=== PATIENT | female | born 1980 | race Hispanic/Latino ===

== ENCOUNTER 2017-08-23 05:51 | Day surgery (SDC) | payer BC ==
[2017-08-23] MEDS ORDERED: NACL BACTERIOSTATIC INFILTRATI ONE (06:28)
[2017-08-23] MEDS ORDERED: DECADRON IV NR (07:13)
[2017-08-23] MEDS ORDERED: ZOFRAN IV PRN (07:13)
--- NOTE | 2017-08-23 07:21 | Anesthesia Day of Surgery ---
Anesthesia Day of Surgery - Day of Surgery Patient Examined: Yes Patient H&P Reviewed: Yes Patient is NPO: Yes
--- NOTE | 2017-08-23 07:21 | Anesthesia Consultation ---
Anesthesia Consult and Med Hx Date of service: 08/23/17 - Airway Anesthetic Teeth Evaluation: Poor, Chipped ROM Head & Neck: Adequate Mental/Hyoid Distance: Inadequate (2.5fb) Mallampati Class: Class I Intubation Access Assessment: Probably Good - Pulmonary Exam CTA: Yes - Cardiac Exam Cardiac Exam: RRR - Pre-Operative Health Status ASA Pre-Surgery Classification: ASA2 - Pulmonary Hx Smoking: Yes (former) - Cardiovascular System Hx Hypertension: No - Central Nervous System Hx Seizures: No CVA: No Hx Psychiatric Problems: No - Gastrointestinal Hx Gastroesophageal Reflux Disease: No (if consuming spicy foods) - Endocrine Hx Renal Disease: No - Other Systems Hx Alcohol Use: Yes (occas) Hx Substance Use: No Hx Cancer: Yes
--- NOTE | 2017-08-23 07:21 | Short Stay Summary ---
Short Stay Documentation Date of service: 08/23/17 - History Principal diagnosis: Menorrhagia H&P: obtained from office Past Medical History: cancer (breast) Past Surgical History: mastectomy (bilateral) Social history: - Allergies and Medications Current Medications: Allergies No Known Allergies Allergy (Verified 08/23/17 06:55) Home Medications Medication Instructions Recorded Confirmed Last Taken Type No Known Home Medications [No 08/21/17 08/21/17 Unknown History Reported Home Medications] - Physical exam General appearance: no acute distress Lungs: Clear to auscultation, Normal air movement Breasts: deferred Heart: Regular rate, Normal S1 Gastrointestinal: normal, normoactive bowel sounds Female Genitourinary: deferred Rectal Exam: deferred Extremities: No edema - Brief post op/procedure progress note Date of procedure: 08/23/17 Pre-op diagnosis: Menorrhagia Post-op diagnosis: same Procedure: Novasure Endometrial ablation Anesthesia: MAC Findings: Thickened endometrium Surgeon: LAKSHMI GAUTAM Estimated blood loss: minimal Pathology: list (endometrial curretings) Specimen disposition: to lab Condition: stable - Hospital course Hospital course: Unremarkable - Disposition Condition at discharge: Good Disposition: DC-01 TO HOME OR SELFCARE Short Stay Discharge Plan Activity: no restrictions Weight Bearing Status: Weight Bear as Tolerated Diet: regular Follow up with: LAKSHMI GAUTAM MD [Staff Physician] - 14 Days Prescriptions: HYDROcodone/ACETAMINOPHEN [[place] 7.5-325 Tablet] 1 each PO Q6H #30 tablet Ibuprofen [Motrin] 800 mg PO Q8HR PRN #40 tablet PRN Reason: Pain
[2017-08-23] MEDS ORDERED: DECADRON ONE (07:22)
[2017-08-23] MEDS ORDERED: XYLOCAINE CARDIAC IV ONE (07:22)
[2017-08-23] MEDS ORDERED: DIPRIVAN 10 MG/ML IV ONE (07:23)
[2017-08-23] MEDS ORDERED: SUBLIMAZE ONE (07:38)
[2017-08-23] MEDS ORDERED: TRANSDERM-SCOP TD NR (08:00)
[2017-08-23] MEDS ORDERED: PEPCID IV NR (08:00)
[2017-08-23] MEDS ORDERED: ANCEF/STERILE WATER 2 GM/20 ML 2 GM/20 ML SYRINGE IV NR (08:00)
[2017-08-23] MEDS ORDERED: NACL 0.9% 1000 ML 1,000 ML IV SCH (08:00)
[2017-08-23] MEDS ORDERED: VERSED IV NR (08:00)
[2017-08-23] MEDS ORDERED: NACL 0.9% IR ONE ×2 (08:16)
[2017-08-23] MEDS: DILAUDID IV PRN ×2 (08:43→08:55)
--- NOTE | 2017-08-23 08:57 | Operative Report ---
Operative Report Operative Report: Preoperative diagnosis: Menorrhagia Postoperative diagnosis: Same Procedure: NovaSure endometrial ablation Surgeon: Dr. Mili Torres Anesthesia: MAC Complications: None Specimens: None EBL: Minimal Urine output: 50 mL clear Procedure: The patient was taken to the OR with IV running and in place. She was given adequate anesthesia without difficulty. She was placed in the dorsal lithotomy position. She was then prepped and draped in the normal sterile fashion. Attention was turned to the patient's vagina. Bladder was drained of approximately 50 mL of clear yellow urine. A speculum was placed in the patient 's vagina. The cervix was visualized and grasped with a single-tooth tenaculum. The cervix was gently dilated up to approximately 8 mm, with a width of 3.4 cm. Following this the hysteroscope was introduced into the uterine cavity. There was no obvious pathology. NovaSure ablation was then performed according to coil builder's instructions. The cycle lasted approximately 59 seconds. Once the ablation device was removed the hysteroscope was reintroduced. There appeared to be a good result with maximum amount of burn point all instruments removed from the patient's vagina. She was then awakened and taken to recovery in stable condition. The sponge and instrument counts were correct 2.
[2017-08-23] MEDS ORDERED: NORCO 7.5/325 PO PRN (09:30)
[2017-08-23 09:57] VITALS: BP 111/78
--- NOTE | 2017-08-23 09:57 | Post Anesthesia Evaluation ---
- Post Anesthesia Evaluation Patient Participated: Yes Airway Patent: Yes Stable Respiratory Function: Yes Nausea/Vomiting: No Temp > 96.8F: Yes Pain Manageable: Yes Adequeate Hydration: Yes Anesthesia Complications: No Block Receding Appropriately: Not Applicable Patient on Ventilator: No
[2017-08-23] MEDS ORDERED: MOTRIN PO PRN (10:00)
== END 2017-08-23 10:28 | disposition home or self-care (01) ==
LOC: OR 05:51
PROVIDERS: ATTEND Obstetrics & Gynecology
DX: N92.0 Excessive and frequent menstruation with regular cycle (principal); E66.9 Obesity, unspecified; Z68.35 Body mass index [BMI] 35.0-35.9, adult; Z90.13 Acquired absence of bilateral breasts and nipples; Z87.891 Personal history of nicotine dependence
CPT/HCPCS: 58563; 81025; 88305; A4217; J1100; J1170; J2001; J2250; J2405; J2704; J3010; J7030